=== PATIENT | female | born 1970 | race African-American/Black ===

== ENCOUNTER 2017-05-23 15:14 | Emergency (ER) | payer BC, MEDICAID ==
[~2017-05-23] VITALS: Ht 172.7 cm; Wt 97.0 kg
[2017-05-23] MEDS ORDERED: MECLIZINE 25MG TABLET PO ONE (16:00)
[2017-05-23] MEDS ORDERED: LISINOPRIL 20MG TABLET PO ONE (16:15)
[2017-05-23 17:39] LABS: CLARITY URINE CLEAR (CLEAR); COLOR URINE YELLOW (YELLOW); GLUCOSE URINE NEGATIVE (NEGATIVE); KETONES URINE NEGATIVE (NEGATIVE); LEUKOCYTE ESTERASE URINE 2+ (NEGATIVE); NITRITE URINE NEGATIVE (NEGATIVE); OCCULT BLOOD URINE NEGATIVE (NEGATIVE); PH URINE 6.5 (4.5-8.0); PROTEIN URINE NEGATIVE (NEGATIVE); SPECIFIC GRAVITY URINE 1.021 (1.005-1.030)
[2017-05-23 18:00] VITALS: BP 163/90
== END 2017-05-23 18:38 | disposition home or self-care (01) ==
LOC: ER 15:59
DX: N39.0 Urinary tract infection, site not specified (principal); H92.01 Otalgia, right ear; R42 Dizziness and giddiness; I10 Essential (primary) hypertension
CPT/HCPCS: 81001; 99283; Z7610; J8597

== ENCOUNTER 2017-10-30 14:25 | Inpatient (IN) | payer BC, MEDICAID ==
[~2017-10-30] VITALS: Ht 175.3 cm; Wt 99.8 kg
[2017-10-30] MEDS ORDERED: HYDR12.529 PO (14:33)
[2017-10-30] MEDS ORDERED: LISI2.5T47 PO (14:33)
[2017-10-30] MEDS ORDERED: CLONIDINE 0.1MG TABLET PO ONE (19:45)
[2017-10-30 20:02] LABS: BASOPHILS % 1.2 % (0.0-2.0); EOSINOPHILS % 3.8 % (0.0-5.0); HEMATOCRIT. 43.2 % (36.0-48.0); HEMOGLOBIN. 14.1 g/dL (12.0-16.0); MEAN CORPUSCULAR HEMOGLOBIN 25.8 pg (28.0-32.0); MEAN CORPUSCULAR VOLUME 79.3 fL (81.0-99.0); MEAN PLATELET VOLUME 8.8 fl (7.4-10.4); PLATELET 358 x1000/uL (130-400); RED BLOOD CELL COUNT 5.45 mill/uL (4.2-5.4)
[2017-10-30 20:06] LABS: PROTHROMBIN TIME 10.3 sec (9.4-11.6)
[2017-10-30 20:18] LABS: CARBON DIOXIDE 30 mEq/L (21-32); CHLORIDE 99 mEq/L (98-107)
[2017-10-30 20:20] LABS: TROPONIN I < 0.02 ng/mL (0.00-0.04)
[2017-10-30 21:09] LABS: CLARITY URINE CLEAR (CLEAR); COLOR URINE YELLOW (YELLOW); KETONES URINE TRACE (NEGATIVE); LEUKOCYTE ESTERASE URINE NEGATIVE (NEGATIVE); NITRITE URINE NEGATIVE (NEGATIVE); OCCULT BLOOD URINE NEGATIVE (NEGATIVE); PH URINE 5.5 (4.5-8.0); PROTEIN URINE NEGATIVE (NEGATIVE); SPECIFIC GRAVITY URINE 1.021 (1.005-1.030); UROBILINOGEN URINE 0.2 E.U./dL (0.2-1.0)
[2017-10-30] MEDS ORDERED: ACETAMINOPHEN 325MG TABLET PO ONE (21:30)
[2017-10-30 22:23] LABS: *AMPHETAMINES SCREEN URINE NEGATIVE (NEGATIVE); *BARBITURATES SCREEN URINE NEGATIVE (NEGATIVE); *BENZODIAZEPINES SCREEN URINE NEGATIVE (NEGATIVE); *COCAINE SCREEN URINE NEGATIVE (NEGATIVE); CANNABINOID URINE SCREEN NEGATIVE (NEGATIVE); METHADONE URINE SCREEN NEGATIVE (NEGATIVE); OPIATES URINE SCREEN NEGATIVE (NEGATIVE); PHENCYCLIDINE URINE SCREEN NEGATIVE (NEGATIVE)
[2017-10-31] MEDS ORDERED: POTASSIUM CHLORIDE 20MEQ TABLET SR PO ONE (02:15)
[2017-10-31] MEDS ORDERED: CLONIDINE 0.1MG TABLET PO PRN (03:30)
[2017-10-31] MEDS ORDERED: DIPHENHYDRAMINE 50MG/ML VIAL IV PRN (03:30)
[2017-10-31] MEDS ORDERED: ONDANSETRON HCL 4MG/2ML VIAL IV PRN (03:30)
[2017-10-31] MEDS ORDERED: MAGNESIUM/ALUMINUM HYDROXIDE/SIMETHICONE 30ML UDC PO PRN (03:30)
[2017-10-31] MEDS ORDERED: MAGNESIUM 2 G PREMIX 50 ML IV ONE (03:30)
[2017-10-31] MEDS ORDERED: ACETAMINOPHEN 325MG TABLET PO PRN (03:30)
[2017-10-31] MEDS ORDERED: IBUPROFEN 400MG TABLET PO PRN (04:45)
[2017-10-31] MEDS: SODIUM CHLORIDE 0.9% INJ 3ML FLUSH IVF SCH ×2 (06:00→14:05)
[2017-10-31] MEDS ORDERED: POTASSIUM CHLORIDE 20MEQ TABLET SR PO NR (07:46)
[2017-10-31 08:00] VITALS: BP 172/86
[2017-10-31] MEDS ORDERED: HYDROCHLOROTHIAZIDE 12.5MG CAPSULE PO SCH (09:00)
[2017-10-31] MEDS ORDERED: HYDROCHLOROTHIAZIDE 25MG TABLET PO SCH (09:00)
[2017-10-31] MEDS ORDERED: LISINOPRIL 10MG TABLET PO SCH (09:00)
[2017-10-31] MEDS ORDERED: POTASSIUM CHLORIDE 20MEQ TABLET SR PO SCH (11:00)
[2017-10-31 12:00] VITALS: BP 130/78
[2017-10-31 16:00] VITALS: BP 128/72
[2017-10-31 17:47] VITALS: BP 128/72
== END 2017-10-31 18:30 | disposition home or self-care (01) | DRG 69 ==
LOC: ER 14:58 → 7WST 10-31 01:54 → EDBEDREQ 10-31 01:59 → EDBEDREQTM 10-31 01:59 → ENRESERV 10-31 03:34
PROVIDERS: ADMIT Internal Medicine; ATTEND Internal Medicine
DX: G45.9 Transient cerebral ischemic attack, unspecified (principal); E86.0 Dehydration; G43.909 Migraine, unspecified, not intractable, without status migrainosus; E87.6 Hypokalemia; I10 Essential (primary) hypertension; J45.909 Unspecified asthma, uncomplicated; R73.03 Prediabetes; Z82.3 Family history of stroke; Z82.49 Family history of ischemic heart disease and other diseases of the circulatory system; Z90.710 Acquired absence of both cervix and uterus; Z91.14 Patient's other noncompliance with medication regimen; Z90.49 Acquired absence of other specified parts of digestive tract
CPT/HCPCS: 36415; 70450; 71045; 80051; 80053; 80305; 81003; 83036; 83735; 83880; 84484; 85025; 85610; 93005; 99285